=== PATIENT | male | born 1930 | race Two or more races ===

== ENCOUNTER 2017-10-23 15:24 | Emergency (ER) | payer MEDICARE, OTHER ==
[~2017-10-23] VITALS: Ht 177.8 cm; Wt 86.0 kg
[2017-10-23] MEDS ORDERED: BACITRACIN ZINC OINT UDPKT TOP ONE (16:30)
[2017-10-23 19:03] VITALS: BP 156/77
== END 2017-10-23 19:05 | disposition home or self-care (01) ==
LOC: ER 15:24
DX: S82.092A Other fracture of left patella, initial encounter for closed fracture (principal); I10 Essential (primary) hypertension; W01.0XXA Fall on same level from slipping, tripping and stumbling without subsequent striking against object, initial encounter; Y93.89 Activity, other specified; Y92.89 Other specified places as the place of occurrence of the external cause; Y99.8 Other external cause status
CPT/HCPCS: 29505; 73560; 99284; L1830